=== PATIENT | female | born 1985 | race Caucasian/White ===

== ENCOUNTER 2022-02-01 01:49 | Inpatient (IN) ==
[2022-02-01] MEDS ORDERED: LACTATED RINGERS 500 ML IV PRN (02:37)
[2022-02-01] MEDS ORDERED: OXYTOCIN/LR 20 UNIT/1,000 ML BAG IV ONE ×2 (02:37→17:06)
[2022-02-01] MEDS ORDERED: BUTORPHANOL 2 MG/ML VIAL IV PRN (02:37)
[2022-02-01] MEDS ORDERED: TRANEXAMIC ACID 1,000 MG in SODIUM CHLORIDE 0.9% 100 ML IV PRN (02:37)
[2022-02-01] MEDS ORDERED: LACTATED RINGERS 250 ML IV ONE (02:37)
[2022-02-01] MEDS ORDERED: CARBOPROST TROMETHAMINE 250 MCG/ML AMP IM PRN (02:37)
[2022-02-01] MEDS ORDERED: METHYLERGONOVINE 0.2 MG/1 ML AMP IM PRN (02:37)
[2022-02-01] MEDS ORDERED: BUTORPHANOL 1 MG/ML VIAL IV PRN (02:37)
[2022-02-01] MEDS ORDERED: ONDANSETRON 4 MG/2 ML VIAL IV PRN ×2 (02:37→17:06)
[2022-02-01] MEDS ORDERED: miSOPROStoL 200 MCG TABLET RECTAL PRN (02:37)
[2022-02-01] MEDS ORDERED: ACETAMINOPHEN 325 MG TABLET PO PRN ×2 (02:37→17:06)
[2022-02-01 03:08] LABS: Basophils % 0.1 % (0.0-0.8); Eosinophils # 0.1 10*3/uL (0.0-0.87); Hematocrit 32.9 VOL% (35.7-47.0); Hemoglobin 10.8 GM/DL (12.0-16.0); Immature Granulocytes % 0.2 %; Immature Granulocytes Absolute 0.02 #; Lymphocytes # 3.3 10*3/uL (1.4-4.0); Lymphocytes % 39.6 % (21.3-54.2); Mean Corpuscular HGB Conc 32.8 GM/DL (32-36); Mean Corpuscular Volume 88.7 FL (87-102); Mean Platelet Volume 10.9 FL (9.6-12.0); Monocytes # 0.9 10*3/uL (0.11-0.8); Monocytes % 10.6 % (1.7-12.7); Neutrophils % 48.5 % (38.7-73.9); Platelet Count 194 T/CUMM (130-400); Red Blood Count 3.71 MC/CUMM (3.8-5.5); Red Cell Distribution Width 12.5 % (9.3-17.3); White Blood Count 8.2 T/CUMM (4-12)
[2022-02-01] MEDS: LACTATED RINGERS 1,000 ML IV SCH ×3 (03:18→11:08)
[2022-02-01] MEDS ORDERED: OXYTOCIN/LR 20 UNIT/1,000 ML BAG IV SCH (07:30)
[2022-02-01] MEDS ORDERED: ePHEDrine 50 MG/ML VIAL IV PRN (07:42)
[2022-02-01] MEDS ORDERED: NALOXONE 0.4 MG/ML VIAL IV PRN (07:42)
[2022-02-01] MEDS ORDERED: CITRIC ACID/SODIUM CITRATE 30 ML UDCUP PO ONE (07:44)
[2022-02-01] MEDS ORDERED: LACTATED RINGERS 1,000 ML IV ONE (07:44)
[2022-02-01] MEDS ORDERED: FAMOTIDINE 20 MG/2 ML VIAL IV ONE (07:44)
[2022-02-01] MEDS ORDERED: fentaNYL 2 MCG/ROPIV 0.2% EPID 100 ML EPIDURAL SCH (08:00)
[2022-02-01 09:34] LABS: Bacteria,Urine Occasional /HPF (Few); Bilirubin,Urine Negative (Negative); Glucose,Urine (UA) Negative (Negative); Ketones,Urine 40 mg/dL (Negative); Mucus,Urine Occasional /LPF (Occasional); Nitrite,Urine Negative (Negative); Protein,Urine Negative (Negative); RBC,Urine 1 /HPF (0-4); Squamous Epithelial Cell,Urine Occasional /HPF (0-10); Urine Appearance Clear (Clear); Urine Color Yellow (Yellow); Urine pH 7.5 (4.5-8.0)
[2022-02-01 09:35] LABS: Blood, Urine Negative (Negative); Urine Urobilinogen 0.2 eU/dL (<2.0)
[2022-02-01] MEDS ORDERED: LANOLIN 50% CREAM 0.3 OZ TUBE TOP PRN (17:06)
[2022-02-01] MEDS ORDERED: WITCH HAZEL PADS 100/JAR TOP PRN (17:06)
[2022-02-01] MEDS ORDERED: MEASLES/MUMPS/RUBELLA VACCINE 0.5 ML VIAL SUBCUT ONE (17:06)
[2022-02-01] MEDS ORDERED: HYDROCORTISONE 2.5% RECTAL CREAM 30 GM TUBE TOP PRN (17:06)
[2022-02-01] MEDS ORDERED: BISACODYL 10 MG SUPP RECTAL PRN (17:06)
[2022-02-01] MEDS ORDERED: BENZOCAINE 20%/MENTHOL 0.5% SPRAY 56 GM CAN TOP PRN (17:06)
[2022-02-01] MEDS ORDERED: DIPH/TET/ACEL PERT BOOSTER VACCINE 0.5 ML VIAL IM ONE (17:06)
[2022-02-01] MEDS ORDERED: RHO(D) IMMUNE GLOBULIN 300 MCG SYRINGE IM ONE (17:06)
[2022-02-01] MEDS ORDERED: ACETAMINOPHEN/CODEINE 300-30 MG TABLET PO PRN ×2 (17:07)
[2022-02-01 17:13] LABS: Cord Arterial Blood HCO3 22.9 MMOL/L
[2022-02-01 17:16] LABS: Cord Venous Blood HCO3 22.8 MMOL/L; Cord Venous Blood PCO2 46.8 MMHG; Cord Venous Blood PO2 27.9
[2022-02-01] MEDS: IBUPROFEN 800 MG TABLET PO PRN (21:57)
[2022-02-02] MEDS: DOCUSATE SODIUM 100 MG CAPSULE PO SCH ×2 (01:56→09:55)
[2022-02-02 06:29] LABS: Basophils % 0.2 % (0.0-0.8); Eosinophils # 0.2 10*3/uL (0.0-0.87); Hemoglobin 10.1 GM/DL (12.0-16.0); Immature Granulocytes % 0.3 %; Immature Granulocytes Absolute 0.03 #; Lymphocytes # 2.7 10*3/uL (1.4-4.0); Lymphocytes % 27.9 % (21.3-54.2); Mean Corpuscular HGB Conc 32.6 GM/DL (32-36); Mean Corpuscular Volume 89.6 FL (87-102); Mean Platelet Volume 10.4 FL (9.6-12.0); Monocytes # 1.2 10*3/uL (0.11-0.8); Monocytes % 12.6 % (1.7-12.7); Platelet Count 190 T/CUMM (130-400); Red Blood Count 3.46 MC/CUMM (3.8-5.5); Red Cell Distribution Width 12.4 % (9.3-17.3); White Blood Count 9.5 T/CUMM (4-12)
[2022-02-02] MEDS: MULTIVITAMIN (PRENATAL) TABLET PO SCH (09:55)
[2022-02-02] MEDS: FERROUS SULFATE 325 MG TABLET PO SCH (09:55)
[2022-02-03] MEDS: DOCUSATE SODIUM 100 MG CAPSULE PO SCH ×2 (04:54→08:55)
[2022-02-03] MEDS: MULTIVITAMIN (PRENATAL) TABLET PO SCH (08:55)
[2022-02-03] MEDS: FERROUS SULFATE 325 MG TABLET PO SCH (08:55)
[2022-02-03 10:03] VITALS: BP 125/71
[2022-02-03] MEDS ORDERED: DIPH/TET/ACEL PERT BOOSTER VACCINE 0.5 ML VIAL IM ONE (10:55)
[2022-02-03] MEDS: IBUPROFEN 800 MG TABLET PO PRN (11:00)
== END 2022-02-03 12:40 | disposition home or self-care (01) | DRG 807 ==
LOC: N.LD 01:49 → N.OB 20:46
PROVIDERS: ADMIT Obstetrics & Gynecology; ATTEND Obstetrics & Gynecology